=== PATIENT | male | born 1995 | race Hispanic/Latino ===

== ENCOUNTER 2016-12-08 14:59 | Emergency (ER) | payer OTHER ==
[2016-12-08 15:10] VITALS: PULSE 66; TEMP 98.4; O2SAT 99
[2016-12-08] MEDS ORDERED: Iohexol 240 (50 ml) PO ONE (15:28)
[2016-12-08] MEDS ORDERED: Sodium Chloride 0.9% 1,000 ML IV STA (15:29)
[2016-12-08] MEDS ORDERED: Iohexol 240 (50 ml) ONE (15:34)
--- NOTE | 2016-12-08 15:39 | ED PDOC ---
Arrival/HPI - General Historian: Patient <AnneCarlos ManuelVladislav - Last Filed: 12/08/16 15:30> <Glenn Cain - Last Filed: 12/08/16 19:10> - General Chief Complaint: GI Problem Time Seen by Provider: 12/08/16 15:12 - History of Present Illness Narrative History of Present Illness (Text): 21 y/o M complaining of bright red blood in stools since this morning. Pt explains having 2 bowel movements today with ~ 1 cup of blood in stools. Pt reports weak and interrupted urine stream with NO pain or burning. NO anal sex practice. Pt denies fever, dizziness, CP, SOB, N/V, abdominal pain, rectal pain , Hx of constipation, tenesmus, fam Hx of colitis or GI issues. Allergies: NKDA Medications: none. PMHx: denied. PSHx: denied. FHx: denied. SHx: No tobacco or recreational drugs. Alcohol very intermittently. Sexually active with girlfriend. 12/08/16 15:31 (Vladislav Anne) Past Medical History - Past History Past History: No Previous - Psychiatric Hx Substance Use: No <Vladislav Anne - Last Filed: 12/08/16 15:30> - Past History Past History: No Previous <Glenn Cain - Last Filed: 12/08/16 19:10> Family/Social History Family/Social History: No Known Family HX Smoking Status: Never Smoked Hx Alcohol Use: No Hx Substance Use: No <Vladislav Anne - Last Filed: 12/08/16 15:30> Allergies/Home Meds <Vladislav Anne - Last Filed: 12/08/16 15:30> <Glenn Cain - Last Filed: 12/08/16 19:10> Allergies/Adverse Reactions: Allergies No Known Allergies Allergy (Verified 12/08/16 15:06) Review of Systems - Physician Review All systems were reviewed & negative as marked: Yes - Review of Systems Gastrointestinal: Hematochezia <Glenn Cain - Last Filed: 12/08/16 19:10> Physical Exam - Systems Exam Head: Present: Atraumatic, Normocephalic Pupils: Present: PERRL Extroacular Muscles: Present: EOMI Conjunctiva: Present: Normal Mouth: Present: Moist Mucous Membranes Neck: Present: Normal Range of Motion Respiratory/Chest: Present: Clear to Auscultation Cardiovascular: Present: Regular Rate and Rhythm Abdomen: Present: Normal Bowel Sounds. No: Tenderness, Distention, Rebound, Guarding Skin: Present: Warm, Dry, Normal Color Psychiatric: Present: Alert, Oriented x 3 <Vladislav Anne - Last Filed: 12/08/16 15:30> - Systems Exam Cardiovascular: Present: Regular Rate and Rhythm Abdomen: No: Tenderness, Distention <Glenn Cain - Last Filed: 12/08/16 19:10> Vital Signs Temp Pulse Resp Pulse Ox 12/08/16 15:07 98.4 F 66 18 99 Medical Decision Making <Vladislav Anne - Last Filed: 12/08/16 15:30> <Glenn Cain - Last Filed: 12/08/16 19:10> ED Course and Treatment: 12/08/16 19:09 Dr. Villagomez to take over care. Fu on ct/labs. (Glenn Cain) - Lab Interpretations Lab Results: 12/08/16 15:40 12/08/16 15:40 Lab Results 12/08/16 16:21: Stool Occult Blood Positive H 12/08/16 15:40: PT 11.6, INR 1.0, APTT 30.1 12/08/16 15:40: Sodium 144, Potassium 3.7, Chloride 103, Carbon Dioxide 29, Anion Gap 16, BUN 16, Creatinine 0.9, Est GFR ( Amer) > 60, Est GFR (Non- Af Amer) > 60, Random Glucose 100, Calcium 9.9, Total Bilirubin 0.3, AST 23, ALT 30, Alkaline Phosphatase 86, Total Protein 7.7, Albumin 4.8, Globulin 2.9, Albumin/Globulin Ratio 1.7 12/08/16 15:40: WBC 7.9, RBC 5.61, Hgb 12.0, Hct 38.2, MCV 68.0 L, MCH 21.4 L, MCHC 31.5 L, RDW 16.4 H, Plt Count 236, MPV 8.3, Neut % (Auto) 50.1, Lymph % ( Auto) 40.2 H, [place] % (Auto) 7.3, Eos % (Auto) 1.6, Baso % (Auto) 0.8, Neut # 4.0 , Lymph # 3.2, [place] # 0.6, Eos # 0.1, Baso # 0.1 - RAD Interpretation Radiology Orders: 12/08/16 15:28 ABD PELVIS PO & IV CONTRAST [CT] Stat - Medication Orders Current Medication Orders: Discontinued Medications Sodium Chloride (Sodium Chloride 0.9%) 1,000 mls @ 1,000 mls/hr IV .Q1H STA Stop: 12/08/16 16:28 Last Admin: 12/08/16 15:41 Dose: 1,000 mls/hr eMAR Start Stop Document 12/08/16 15:41 LAB (Rec: 12/08/16 15:41 LAB [id number]) Intravenous Solution Start Date 12/08/16 Start Time 15:41 Iohexol (Omnipaque 240 (50 Ml)) 50 ml PO ONCE ONE Stop: 12/08/16 15:29 Last Admin: 12/08/16 15:39 Dose: 50 ml Disposition/Present on Arrival <Vladislav Anne - Last Filed: 12/08/16 15:30> - Present on Arrival Any Indicators Present on Arrival: No - Disposition Have Diagnosis and Disposition been Completed?: No Disposition Time: 19:10 <Glenn Cain - Last Filed: 12/08/16 19:10> - Disposition Diagnosis: Gastrointestinal hemorrhage Condition: STABLE Forms: [facility] (Al[place]ian) - Notes Notes (Text): 12/08/16 19:10 Dr. Villagomez to take over care. (Glenn Cain) Attending/Attestation <Vladislav Anne - Last Filed: 12/08/16 15:30> - Attestation I have personally seen and examined this patient.: Yes I have fully participated in the care of the patient.: Yes I have reviewed all pertinent clinical information, including history, physical exam and plan: Yes <Glenn Cain - Last Filed: 12/08/16 19:10> - Attestation Notes (Text): 12/08/16 19:06 Evaluated with resident. Here with bloody stool. (Glenn Cain)
[2016-12-08 15:43] LABS: BASO # 0.1 K/uL (0.0-0.2); BASO % 0.8 % (0.0-2.0); EOS # 0.1 K/uL (0.0-0.7); EOS % 1.6 % (0.0-4.0); HEMATOCRIT 38.2 % (35.0-51.0); LYMPH # 3.2 K/uL (1.0-4.3); LYMPH % 40.2 % (20.0-40.0); MEAN CORPUSCULAR HEMOGLOBIN 21.4 pg (27.0-31.0); MEAN CORPUSCULAR HGB CONC 31.5 g/dL (33.0-37.0); MEAN PLATELET VOLUME 8.3 fl (7.2-11.7); MONO # 0.6 K/uL (0.0-0.8); MONO % 7.3 % (0.0-10.0); NEUT % 50.1 % (50.0-75.0); NRBC % 0.1 % (0.0-0.0); RED CELL DISTRIBUTION WIDTH 16.4 % (11.5-14.5); WHITE BLOOD COUNT 7.9 K/uL (4.8-10.8)
[2016-12-08 15:54] LABS: PARTIAL THROMBOPLASTIN TIME 30.1 Seconds (25.6-37.1)
[2016-12-08 15:57] LABS: ALB/GLOB RATIO 1.7 (1.0-2.1); ALKALINE PHOSPHATASE 86 U/L (38-126); ALT/SGPT 30 U/L (21-72); AST/SGOT 23 U/L (17-59); BILIRUBIN,TOTAL 0.3 mg/dl (0.2-1.3); BLOOD UREA NITROGEN 16 mg/dl (9-20); CALCIUM 9.9 mg/dL (8.4-10.2); CARBON DIOXIDE 29 mmol/L (22-30); CHLORIDE 103 mmol/L (98-107); GFR AFRICAN-AMERICAN > 60; GLUCOSE,RANDOM 100 mg/dL (75-110); POTASSIUM 3.7 MMOL/L (3.6-5.0); SODIUM 144 mmol/l (132-148); TOTAL PROTEIN 7.7 G/DL (6.3-8.2)
[2016-12-08] MEDS ORDERED: Iohexol 300 100 ML IJ ONE (17:20)
[2016-12-08] MEDS ORDERED: Sodium Chloride 0.9% 50 ML IV ONE (17:20)
--- NOTE | 2016-12-08 17:58 | CT ---
PROCEDURE: CT Abdomen and Pelvis with contrast HISTORY: Abdominal pain and hematuria. COMPARISON: None. TECHNIQUE: Contrast dose: 90 cc Omnipaque 300. Radiation dose: Total exam DLP = 557.04 mGy-cm. This CT exam was performed using one or more of the following dose reduction techniques: Automated exposure control, adjustment of the mA and/or kV according to patient size, and/or use of iterative reconstruction technique. FINDINGS: LOWER THORAX: Unremarkable. LIVER: Unremarkable. No gross lesion or ductal dilatation. GALLBLADDER AND BILE DUCTS: Unremarkable. PANCREAS: Unremarkable. No gross lesion or ductal dilatation. SPLEEN: Unremarkable. ADRENALS: Unremarkable. No mass. KIDNEYS AND URETERS: Unremarkable. No hydronephrosis. No solid mass. VASCULATURE: Unremarkable. No aortic aneurysm. BOWEL: Constipation without fecal impaction or obstruction. APPENDIX: Normal appendix. PERITONEUM: Unremarkable. No free fluid. No free air. LYMPH NODES: Unremarkable. No enlarged lymph nodes. BLADDER: Unremarkable. REPRODUCTIVE: Unremarkable. BONES: No acute fracture. OTHER FINDINGS: None. IMPRESSION: No significant or acute findings to account for/ related to the clinical presentation. Additional benign and/or incidental findings described above.
[2016-12-08 19:54] VITALS: BP 132/64; RESP 16
--- NOTE | 2016-12-08 19:54 | ED PDOC ---
- Laboratory Results Result Diagrams: 12/08/16 15:40 12/08/16 15:40 - ECG O2 Sat by Pulse Oximetry: 99 (RA) Pulse Ox Interpretation: Normal Medical Decision Making Medical Decision Makin:00. Patient transferred from Dr. Cain to tx. Pending CT. 19:45. CT negative for acute pathology, patient has no c/o of pain at this time , normal vitals and labs. Will refer patient to GI, return precautions discussed such as worsening bleeding associated with pallor, diaphoresis, syncope/near syncope, etc., abdominal pain, fevers, or other concerning symptoms. Scribe Attestation: Documented by Tyler adams, acting as a scribe for Ernesto Villagomez MD Provider Scribe Attestation: All medical record entries made by the Scribe were at my direction and personally dictated by me. I have reviewed the chart and agree that the record accurately reflects my personal performance of the history, physical exam, medical decision making, and the department course for this patient. I have also personally directed, reviewed, and agree with the discharge instructions and disposition. Disposition - Clinical Impression Clinical Impression: Rectal bleed - POA Present On Arrival: None - Disposition Referrals: Hesham Buchanan MD [Staff Provider] - Disposition: Routine/Home Disposition Time: 19:45 Condition: STABLE Instructions: Rectal Bleeding (ED) Forms: [facility] (Citizen [place])
== END 2016-12-08 19:56 | disposition home or self-care (01) ==
LOC: H.ER 14:59
DX: K62.5 Hemorrhage of anus and rectum (principal)
CPT/HCPCS: 74177; 80053; 85025; 85610; 85730; 99285; G0328; J7040; Q9966; Q9967